=== PATIENT | male | born 1995 | race Caucasian/White ===

== ENCOUNTER 2022-05-20 14:06 | Emergency (ER) | payer OTHER ==
[2022-05-20] MEDS ORDERED: HYDROmorphone 1 MG/ML Syringe IM ONE ×2 (17:37→19:45)
[2022-05-20] MEDS ORDERED: Ondansetron 4 MG Tab.DIS PO ONE (17:37)
== END 2022-05-20 20:33 | disposition home or self-care (01) ==
LOC: JP.ED 14:06
DX: M54.50 Low back pain, unspecified (principal)
CPT/HCPCS: 72100; 96372; 99283; J1170; Q0162; 99282